=== PATIENT | male | born 1990 | race African-American/Black ===

== ENCOUNTER 2019-04-12 12:03 | Emergency (ER) | payer MEDICAID ==
[~2019-04-12] VITALS: Ht 185.4 cm; Wt 159.0 kg
[2019-04-12 12:21] VITALS: BP 173/71
== END 2019-04-12 12:33 | disposition home or self-care (01) ==
LOC: ER 12:03
DX: Z48.02 Encounter for removal of sutures (principal)
CPT/HCPCS: 99281; Z7610

== ENCOUNTER 2021-01-25 01:06 | Emergency (ER) | payer MEDICAID ==
[~2021-01-25] VITALS: Ht 182.9 cm; Wt 147.0 kg
[2021-01-25] MEDS ORDERED: ASPIRIN 81MG TABLET PO ONE (01:45)
[2021-01-25 02:23] LABS: BASOPHILS % 0.7 % (0.0-2.0); CHLORIDE 108 mEq/L (98-107); EOSINOPHILS % 4.1 % (0.0-5.0); HEMATOCRIT. 38.5 % (42.0-52.0); HEMOGLOBIN. 13.2 g/dL (14.0-18.0); LYMPHOCYTES % 44.8 % (20.0-50.0); MEAN CORPUSCULAR HEMOGLOBIN 31.3 pg (28.0-32.0); MEAN CORPUSCULAR VOLUME 91.5 fL (80.0-94.0); MEAN PLATELET VOLUME 7.7 fl (7.4-10.4); MONOCYTES % 9.1 % (2.0-8.0); NEUTROPHILS % 41.3 % (40.0-76.0); PLATELET 325 x1000/uL (130-400); RED BLOOD CELL COUNT 4.21 mill/uL (4.7-6.1); RED CELL DISTRIBUTION WIDTH 13.4 % (11.6-14.6)
[2021-01-25 02:27] LABS: ETHANOL BLOOD < 10 mg/dL
[2021-01-25 03:29] VITALS: BP 150/79
== END 2021-01-25 03:47 | disposition home or self-care (01) ==
LOC: ER 01:08
DX: R07.89 Other chest pain (principal); R74.8 Abnormal levels of other serum enzymes; I10 Essential (primary) hypertension
CPT/HCPCS: 36415; 71045; 80053; 80320; 83880; 84484; 85025; 93005; 99285; Z7610; G0480

== ENCOUNTER 2024-11-03 12:12 | Emergency (ER) | payer MEDICAID ==
[~2024-11-03] VITALS: Ht 182.9 cm; Wt 167.0 kg
[2024-11-03 12:17] VITALS: O2SAT 96
[2024-11-03 13:43] VITALS: BP 130/68; PULSE 76; RESP 18; TEMP 36.7; O2SAT 100
== END 2024-11-03 13:44 | disposition home or self-care (01) ==
LOC: ER 12:12
DX: J11.1 Influenza due to unidentified influenza virus with other respiratory manifestations (principal); I10 Essential (primary) hypertension; F10.90 Alcohol use, unspecified, uncomplicated; Y90.9 Presence of alcohol in blood, level not specified
CPT/HCPCS: 99281